=== PATIENT | male | born 1970 | race Caucasian/White ===

== ENCOUNTER 2016-05-27 11:19 | Emergency (ER) | payer SELFPAY ==
[~2016-05-27] VITALS: Ht 177.8 cm; Wt 127.5 kg
[~2016-05-27 11:19] MED LIST: CELEBREX200 MG PO; CHLORZOXAZONE500 MG PO; FORTESTA60 GM TD; HYDROCODON-ACE1 EA10 PO; RANITIDINE HCL150 M1 PO
[2016-05-27 12:29] LABS: HEMATOCRIT 45.5 % (38.0-50.0); MCHC 35.2 G/DL (30.0-36.0); MEAN PLAT.VOLUME 10.3 uM^3 (9.0-12.4); PLATELET COUNT 186 K/uL (156-360); RBC DIS.WIDTH-CV 12.1 % (11.8-14.6); RBC DIS.WIDTH-SD 40.6 % (39-53); WHITE BLOOD COUNT 4.3 K/uL (4.1-10.2)
[2016-05-27 12:59] LABS: ANION GAP 11 MEQ/L (2-14); CHLORIDE 98 MEQ/L (99-109); GFR ESTIMATE (CALCULATED) > 59 mL/min/; GLUCOSE 310 mg/dL (70-99); SAMPLE HEMOLYSIS CHECK 1; SAMPLE ICTERIC CHECK 0; SAMPLE LIPEMIA CHECK 2; SODIUM 134 MEQ/L (136-147); UREA NITROGEN (BUN) 11 mg/dL (9-23)
[2016-05-27 13:00] LABS: POTASSIUM 4.2 MEQ/L (3.7-5.4)
[2016-05-27 13:21] LABS: ADD MIUA? NO; BILIRUBIN NEGATIVE; BLOOD NEGATIVE; COLOR STRAW ((YELLOW)); GLUCOSE (STRIP) >=500; KETONES 5; LEUKOCYTES NEGATIVE; NITRITE NEGATIVE; PROTEIN (STRIP) NEGATIVE; SPECIFIC GRAVITY 1.025 (1.000-1.030); UCUL ADDED? NO; UROBILINOGEN 0.2 MG/DL (0.2-1.0)
[2016-05-27] MEDS ORDERED: SUCRALFATE1 GM PO (15:04)
[2016-05-27] MEDS ORDERED: METFORMIN HCL1000 MG PO (15:05)
[2016-05-27] MEDS ORDERED: ASPIR 8181 M1 PO (15:05)
[2016-05-27] MEDS ORDERED: PANTOPRAZOLE SO40 MG PO (15:06)
[2016-05-27] MEDS ORDERED: TAMSULOSIN HCL0.4 MG PO (15:06)
[2016-05-27] MEDS ORDERED: CILOSTAZOL100 MG PO (15:06)
[2016-05-27] MEDS ORDERED: EZETIMIBE10 MG PO (15:07)
[2016-05-27] MEDS ORDERED: CARVEDILOL3.125 MG PO (15:07)
[2016-05-27] MEDS ORDERED: FLEXERIL5 MG PO (15:27)
[2016-05-27] MEDS ORDERED: METFORMIN HCL500 MG PO (15:27)
[2016-05-27] MEDS ORDERED: NORCO 5/3251 TABLET PO (15:27)
[2016-05-27 15:39] VITALS: BP 159/95
== END 2016-05-27 15:41 | disposition home or self-care (01) ==
LOC: EME 11:19 → RME 11:19
DX: G89.29 Other chronic pain (principal); M54.5 Low back pain; E11.65 Type 2 diabetes mellitus with hyperglycemia; E24.9 Cushing's syndrome, unspecified; Z79.84 Long term (current) use of oral hypoglycemic drugs; Z72.0 Tobacco use; Z91.048 Other nonmedicinal substance allergy status
CPT/HCPCS: 71020; 80048; 81003; 85027; 99281; 99284; J2270